=== PATIENT | female | born 1960 | race Caucasian/White ===

== ENCOUNTER 2017-10-15 07:07 | Inpatient (IN) | payer MEDICAID ==
[~2017-10-15] VITALS: Ht 160 cm; Wt 43.5 kg
[2017-10-15] VITALS (8 sets, daily range): BP systolic 111–198; BP diastolic 75–96; PULSE 87–106; RESP 12–20; TEMP 96.9–97.7; O2SAT 94–96
[2017-10-15] MEDS ORDERED: PREG25 PO (07:34)
[2017-10-15] MEDS ORDERED: AMBI10TA PO (07:34)
[2017-10-15 07:36] LABS: AUTOMATED NEUTROPHIL # 8.2 TH/MM3 (1.8-7.7); BASOPHIL % 0.3 % (0.0-2.0); EOSINOPHIL % 0.4 % (0.0-4.0); HEMATOCRIT 45.3 % (35.0-46.0); HEMO FLAGS DIFF FINAL; LYMPH % 9.5 % (9.0-44.0); LYMPHOCYTE # 0.9 TH/MM3 (1.0-4.8); MEAN CELL VOLUME 96.8 FL (80.0-100.0); MEAN CORPUSCULAR HEMOGLOBIN 31.9 PG (27.0-34.0); MEAN CORPUSCULAR HGB CONC 32.9 % (32.0-36.0); MONO % 6.2 % (0.0-8.0); NEUT % 83.6 % (16.0-70.0); PLATELET COUNT 322 TH/MM3 (150-450); RED BLOOD COUNT 4.69 MIL/MM3 (4.00-5.30); RED CELL DISTRIBUTION WIDTH 13.5 % (11.6-17.2); WHITE BLOOD COUNT 9.8 TH/MM3 (4.0-11.0)
--- NOTE | 2017-10-15 07:38 | PD ---
HPI Chief Complaint: Altered Mental Status Time Seen by Provider: 07:16 Travel History International Travel<30 days: No (unknown) Contact w/Intl Traveler<30days: No (unknown) History of Present Illness HPI 57yo F with PMH of COPD, HTN was brought in by EVAC for altered mental status. Apparently, she drove from [facility] and is not from around here. Told EVAC she has not slept for days and out of her ambien. She is acting very bizarre and stares for a while before stating her name. Pt is not answering questions and seems a bit catatonic. No acute signs of trauma except old abrasion in left knee and dirt in feet. Apparently, EVAC spoke to a friend on the phone and said she was acting normal last time they spoke at 3pm yesterday. PFSH Past Medical History ?: Unknown Social History Tobacco Use: No Allergies-Medications (Allergen,Severity, Reaction): Coded Allergies: No Known Allergies (Unverified , 10/15/17) Reported Meds & Prescriptions Reported Meds & Active Scripts Active Reported Ventolin Hfa 18 GM Inh (Albuterol Sulfate) 90 Mcg/Act Aer 2 Puff INH Q4-6H PRN Vicodin (Hydrocodone-Acetaminophen) 5-300 Mg Tab 1 Tab PO Q6H PRN Lyrica (Pregabalin) 25 Mg Cap 25 Mg PO DAILY Ambien (Zolpidem Tartrate) 10 Mg Tab 10 Mg PO HS PRN Review of Systems Except as stated in HPI: all other systems reviewed are Neg Physical Exam Narrative GENERAL: 57yo F not in distress. SKIN: Focused skin assessment warm/dry. HEAD: Atraumatic. Normocephalic. EYES: Pupils equal and round at 5mm bilaterally. ENT: No nasal bleeding or discharge. Mucous membranes pink and moist. NECK: Trachea midline. No JVD. CARDIOVASCULAR: Regular rate and rhythm. No murmur appreciated. RESPIRATORY: No accessory muscle use. Clear to auscultation. Breath sounds equal bilaterally. GASTROINTESTINAL: Abdomen soft, non-tender, nondistended. MUSCULOSKELETAL: No obvious deformities. No clubbing. No cyanosis. No edema. NEUROLOGICAL: Awake and oriented to person only. Muscle strength 5/5 in all extremities. Sensation intact. Data Data Last Documented VS Vital Signs Date Time Temp Pulse Resp B/P (MAP) Pulse Ox O2 Delivery O2 Flow Rate FiO2 12/1/17 09:41 99 96 Room Air 10/15/17 09:41 18 157/88 (111) 10/15/17 07:16 97.7 Orders Orders Electrocardiogram (10/15/17 07:16) Ammonia (10/15/17 07:16) Complete Blood Count With Diff (10/15/17 07:16) Comprehensive Metabolic Panel (10/15/17 07:16) Creatine Kinase (Cpk) (10/15/17 07:16) Prothrombin Time / Inr (Pt) (10/15/17 07:16) Act Partial Throm Time (Ptt) (10/15/17 07:16) Troponin I (10/15/17 07:16) Thyroid Stimulating Hormone (10/15/17 07:16) Urinalysis - C+S If Indicated (10/15/17 07:16) Lactic Acid Sepsis Protocol (10/15/17 07:16) Chest, Single Ap (10/15/17 07:16) Ct Brain W/O Iv Contrast(Rout) (10/15/17 07:16) Drug Screen, Random Urine (10/15/17 07:16) Alcohol (Ethanol) (10/15/17 07:16) Ketorolac Inj (Toradol Inj) (10/15/17 08:45) CKMB (10/15/17 07:19) CKMB% (10/15/17 07:19) Sodium Chlor 0.9% 1000 Ml Inj (Ns 1000 M (10/15/17 09:45) Thyroxine (T4) (10/15/17 09:32) Knee, Ltd (1 Or 2vws) (10/15/17 ) Knee, Ltd (1 Or 2vws) (10/15/17 ) Admit To Inpatient (10/15/17 ) Vital Signs (Adult) Q4H (10/15/17 10:05) Activity Bed Rest (10/15/17 10:05) Diet Regular Basic (10/15/17 Lunch) Sodium Chlor 0.9% 1000 Ml Inj (Ns 1000 M (10/15/17 10:05) Sodium Chloride 0.9% Flush (Ns Flush) (10/15/17 10:15) Sodium Chloride 0.9% Flush (Ns Flush) (10/15/17 21:00) Acetaminophen (Tylenol) (10/15/17 10:15) Basic Metabolic Panel (Bmp) (10/16/17 06:00) Complete Blood Count With Diff (10/16/17 06:00) Resp Oxygen Ronak C Titrat 1-4 L (10/15/17 ) Heparin Inj (Heparin Inj) (10/15/17 14:00) Naloxone Inj (Narcan Inj) (10/15/17 10:15) Admit Order (Ed Use Only) (10/15/17 10:06) Labs Laboratory Tests Test 10/15/17 07:19 10/15/17 07:57 10/15/17 08:35 White Blood Count 9.8 TH/MM3 Red Blood Count 4.69 MIL/MM3 Hemoglobin 14.9 GM/DL Hematocrit 45.3 % Mean Corpuscular Volume 96.8 FL Mean Corpuscular Hemoglobin 31.9 PG Mean Corpuscular Hemoglobin Concent 32.9 % Red Cell Distribution Width 13.5 % Platelet Count 322 TH/MM3 Mean Platelet Volume 7.4 FL Neutrophils (%) (Auto) 83.6 % Lymphocytes (%) (Auto) 9.5 % Monocytes (%) (Auto) 6.2 % Eosinophils (%) (Auto) 0.4 % Basophils (%) (Auto) 0.3 % Neutrophils # (Auto) 8.2 TH/MM3 Lymphocytes # (Auto) 0.9 TH/MM3 Monocytes # (Auto) 0.6 TH/MM3 Eosinophils # (Auto) 0.0 TH/MM3 Basophils # (Auto) 0.0 TH/MM3 CBC Comment DIFF FINAL Differential Comment Prothrombin Time 9.9 SEC Prothromb Time International Ratio 0.9 RATIO Activated Partial Thromboplast Time 25.5 SEC Blood Urea Nitrogen 7 MG/DL Creatinine 0.50 MG/DL Random Glucose 86 MG/DL Total Protein 7.2 GM/DL Albumin 3.8 GM/DL Calcium Level 8.7 MG/DL Alkaline Phosphatase 59 U/L Aspartate Amino Transf (AST/SGOT) 28 U/L Alanine Aminotransferase (ALT/SGPT) 24 U/L Total Bilirubin 0.6 MG/DL Sodium Level 124 MEQ/L Potassium Level 4.0 MEQ/L Chloride Level 91 MEQ/L Carbon Dioxide Level 24.0 MEQ/L Anion Gap 9 MEQ/L Estimat Glomerular Filtration Rate 128 ML/MIN Ammonia 16 MCMOL/L Total Creatine Kinase 505 U/L Creatine Kinase MB 8.0 NG/ML Creatine Kinase MB % 1.6 % Troponin I LESS THAN 0.02 NG/ML Thyroxine (T4) 8.4 MCG/DL Thyroid Stimulating Hormone 3rd Gen 0.115 uIU/ML Ethyl Alcohol Level LESS THAN 3 MG/DL Urine Collection Type CATH Urine Color YELLOW Urine Turbidity CLEAR Urine pH 6.0 Urine Specific [place] 1.011 Urine Protein 30 mg/dL Urine Glucose (UA) NEG mg/dL Urine Ketones 15 mg/dL Urine Occult Blood TRACE Urine Nitrite NEG Urine Bilirubin NEG Urine Leukocyte Esterase NEG Urine RBC 0-3 /hpf Urine WBC 0-2 /hpf Urine Squamous Epithelial Cells 0-5 /hpf Microscopic Urinalysis Comment CATH-CULT NOT IND Urine Collection Time 07:57 Urine Opiates Screen NEG Urine Barbiturates Screen NEG Urine Amphetamines Screen NEG Urine Benzodiazepines Screen NEG Urine Cocaine Screen NEG Urine Cannabinoids Screen NEG Lactic Acid Level 0.7 mmol/L MDM Medical Decision Making Medical Screen Exam Complete: Yes Emergency Medical Condition: Yes Interpretation(s) EKG: Sinus tachycardia at 101bpm. Normal axis. No ST segment elevation or depression. Differential Diagnosis Psychosis vs. delirium vs. dementia vs. ICH Narrative Course 57yo F with altered mental status. Labs reviewed, no leukocytosis. Hyponatremia at 124. Lactic acid 0.7. Ammonia normal. CPK mildly elevated at 505. Troponin negative. TSH low at 0.115. T4 ordered. Alcohol negative. Utox negative. UA negative. CXR negative. CT brain negative. Pt reevaluated at bedside and is now talking more and complaining of bilateral knee pain. Said she fell yesterday. Xray bilateral knees negative for fracture. Pt given NS IVF and toradol for pain. Discussed with Dr. Van and accepted to her service. Diagnosis Primary Impression: Altered mental status Qualified Codes: R41.82 - Altered mental status, unspecified Additional Impression: Hyponatremia Admitting Information Admitting Physician Requests: Admit Scripts Clonidine (Clonidine) 0.1 Mg Tab 0.1 MG PO Q6HR for Blood Pressure Management, #60 TAB 0 Refills Prov: Tatiana Van MD 10/16/17 Kenyatta Bush DO Oct 15, 2017 07:38
[2017-10-15] MEDS ORDERED: VENTAER INH (07:41)
[2017-10-15] MEDS ORDERED: HYDR-3111 PO (07:41)
--- NOTE | 2017-10-15 07:44 | RADRPT ---
EXAM DATE/TIME: 10/15/2017 07:27 [facility] COMPARISON: No previous studies available for comparison. INDICATIONS : Altered mental status. RADIATION DOSE: 59.98 CTDIvol (mGy) MEDICAL HISTORY : Chronic obstructive pulmonary disease. Hypertension. SURGICAL HISTORY : None. ENCOUNTER: Initial ACUITY: 1 day PAIN SCALE: 0/10 LOCATION: cranial TECHNIQUE: Multiple contiguous axial images were obtained of the head. Using automated exposure control and adj ustment of the mA and/or kV according to patient size, radiation dose was kept as low as reasonably a chievable to obtain optimal diagnostic quality images. DICOM format image data is available electro nically for review and comparison. FINDINGS: CEREBRUM: The ventricles are normal for age. No evidence of midline shift, mass lesion, hemorrhage or acute in farction. No extra-axial fluid collections are seen. POSTERIOR FOSSA: The cerebellum and brainstem are intact. The 4th ventricle is midline. The cerebellopontine angle i s unremarkable. EXTRACRANIAL: The visualized portion of the orbits is intact. SKULL: The calvaria is intact. No evidence of skull fracture. CONCLUSION: No acute disease. Jamison Tavares Jr., MD on October 15, 2017 at 7:38 Board Certified Radiologist. This report was verified electronically.
--- NOTE | 2017-10-15 07:45 | RADRPT ---
EXAM DATE/TIME: 10/15/2017 07:34 [facility] COMPARISON: No previous studies available for comparison. INDICATIONS : Short of breath. MEDICAL HISTORY : Chronic obstructive pulmonary disease. SURGICAL HISTORY : None. ENCOUNTER: Initial ACUITY: 1 day PAIN SCORE: 0/10 LOCATION: Bilateral chest FINDINGS: A single view of the chest demonstrates the lungs to be symmetrically aerated without evidence of mas s, infiltrate or effusion. Lungs are hyperinflated bilaterally. Linear parenchymal density within the medial left upper lobe consistent with scarring. A calcified granulomas seen within the lateral righ t base. The cardiomediastinal contours are unremarkable. Osseous structures are intact. CONCLUSION: Hyperinflation suggesting COPD. No infiltrates or effusions. Linear scarring within the medial left u pper lobe. Jamison Tavares Jr., MD on October 15, 2017 at 7:42 Board Certified Radiologist. This report was verified electronically.
[2017-10-15 07:51] LABS: APTT (PATIENT) 25.5 SEC (24.3-30.1); INTERNATIONAL NORMALIZED RATIO 0.9 RATIO; PROTHROMBIN TIME - PATIENT 9.9 SEC (9.8-11.6)
[2017-10-15 08:04] LABS: GLUCOSE,URINE NEG (NEG); KETONE, URINE 15 mg/dL (NEG); NITRITE,URINE NEG (NEG)
[2017-10-15 08:08] LABS: BLOOD, URINE TRACE (NEG)
[2017-10-15 08:10] LABS: METHOD OF COLLECTION CATH
[2017-10-15 08:11] LABS: COMMENT (UR) CATH-CULT NOT IND; CULTURE IF INDICATED CATH CULTURE NOT IND; RBC, URINE 0-3 /hpf (0-3); SQUAMOUS EPITHELIAL CELL URINE 0-5 /hpf (0-5); URINE COLOR YELLOW (YELLW/STRAW); WBC, URINE 0-2 /hpf (0-5)
[2017-10-15] MEDS ORDERED: KETOROLAC TROMETHAMINE 30 MG/ML (IVP) VIAL IV PUSH ONE (08:45)
[2017-10-15 09:20] LABS: ALCOHOL LESS THAN 3 MG/DL (0-5); ALKALINE PHOSPHATASE 59 U/L (45-117); ALT (GPT) 24 U/L (10-53); ANION GAP 9 MEQ/L (5-15); AST (GOT) 28 U/L (15-37); BLOOD UREA NITROGEN 7 MG/DL (7-18); CHLORIDE 91 MEQ/L (98-107); CREATINE KINASE 505 U/L (26-192); GLOMERULAR FILTRATION RATE 128 ML/MIN (>89); TOTAL BILIRUBIN ADULT 0.6 MG/DL (0.2-1.0)
[2017-10-15 09:23] LABS: SODIUM (NA) 124 MEQ/L (136-145)
[2017-10-15] MEDS ORDERED: SODIUM CHLOR 0.9% 1000 ML INJ 1,000 ML IV ONE (09:45)
--- NOTE | 2017-10-15 10:13 | RADRPT ---
EXAM DATE/TIME: 10/15/2017 09:57 [facility] COMPARISON: No previous studies available for comparison. INDICATIONS : Fall, left knee pain. MEDICAL HISTORY : None. SURGICAL HISTORY : None. ENCOUNTER: Initial ACUITY: 1 day PAIN SCORE: 8/10 LOCATION: Left knee FINDINGS: Two view examination of the left knee demonstrates no evidence of fracture or dislocation. Bony mine ralization is normal. The suprapatellar soft tissues have a normal configuration. CONCLUSION: Negative for fracture or dislocation. Follow up in 7-10 days is suggested if symptoms persist. Darell Miguel MD FACR on October 15, 2017 at 10:10 Board Certified Radiologist. This report was verified electronically.
--- NOTE | 2017-10-15 10:14 | RADRPT ---
EXAM DATE/TIME: 10/15/2017 09:57 [facility] COMPARISON: No previous studies available for comparison. INDICATIONS : Fall, right knee pain. MEDICAL HISTORY : None. SURGICAL HISTORY : None. ENCOUNTER: Initial ACUITY: 1 day PAIN SCORE: 8/10 LOCATION: Right knee FINDINGS: Two view examination of the right knee demonstrates no evidence of fracture or dislocation. Bony min eralization is normal. Minimal induration suprapatellar tissues.. CONCLUSION: Minimal induration suprapatellar soft tissues, negative for fracture Darell Miguel MD FACR on October 15, 2017 at 10:11 Board Certified Radiologist. This report was verified electronically.
[2017-10-15] MEDS ORDERED: NALOXONE HCL 0.4 MG/ML AMP IV PUSH PRN (10:15)
[2017-10-15] MEDS ORDERED: SODIUM CHLORIDE 0.9% FLUSH 10 ML FLUSH IV FLUSH PRN (10:15)
[2017-10-15] MEDS ORDERED: ACETAMINOPHEN 325 MG TAB PO PRN (10:15)
[2017-10-15] MEDS: SODIUM CHLOR 0.9% 1000 ML INJ 1,000 ML IV SCH ×2 (10:52→21:00)
[2017-10-15] MEDS: HEPARIN SODIUM - SQ 10,000 UNITS/ML VIAL SQ SCH ×2 (16:07→22:42)
--- NOTE | 2017-10-15 16:08 | EKG ---
Date Performed: 10/15/2017 Time Performed: 07:25:54 PTAGE: 57 years EKG: SINUS TACHYCARDIA POSSIBLE RIGHT ATRIAL ENLARGEMENT ABNORMAL RHYTHM ECG NO PREVIOUS TRACING DOCTOR: Lorena Das Interpretating Date/Time 10/15/2017 16:07:25
--- NOTE | 2017-10-15 17:00 | HHI.HP ---
[facility] Service [facility] Primary Care Physician No Primary Care Physician Admission Diagnosis Altered mental status, hyponatremia Diagnoses: Chief Complaint: Hyponatremia Travel History International Travel<30 Days: No Contact w/Intl Traveler <30 Da: No Traveled to Known Affected Are: No History of Present Illness Patient is a 57-year-old female who came to the emergency room acting bizarre. She is staring and not answering questions in the emergency room. Were no signs of trauma. Apparently she has a history of COPD and hypertension but this is not clear. She does possess medications including Ventolin, Vicodin, Lyrica and Ambien. The emergency room reported that she ran out of her Ambien area she is not cooperating due to this altered mental state. She has been staring at the nursing team and other patients. When asked her name or twice in the hospital she has a blank stare. When asked if she is in pain she says "yes my knees hurt". She does have a sodium level of 124 and has been admitted to the medical team for further evaluation. She appears to have some mild rhabdomyolysis. She's been started on IV fluids and admitted to the medical team for further evaluation Review of Systems ROS Limitations: Psychotic Past Family Social History Past Medical History Unknown Past Surgical History Unknown Reported Medications Reviewed in the EMR Allergies: Coded Allergies: No Known Allergies (Unverified , 10/15/17) Active Ordered Medications reviewed in the EMR Family History Unknown Social History Unknown Physical Exam Vital Signs Vital Signs Date Time Temp Pulse Resp B/P (MAP) Pulse Ox O2 Delivery O2 Flow Rate FiO2 10/15/17 12:00 96.9 102 12 140/75 (96) 94 10/15/17 11:29 10/15/17 10:54 106 18 167/96 (119) 96 Room Air 10/15/17 09:41 99 96 Room Air 10/15/17 09:41 99 18 157/88 (111) 95 Room Air 10/15/17 08:48 104 18 111/87 (95) 96 Room Air 10/15/17 07:59 Room Air 10/15/17 07:16 97.7 101 17 193/94 (127) 95 Physical Exam GENERAL: This is a frail female is somnolent SKIN: No rashes, ecchymoses or lesions. Cool and dry. HEAD: Atraumatic. Normocephalic. No temporal or scalp tenderness. EYES: Pupils equal round and reactive. Extraocular motions intact. No scleral icterus. No injection or drainage. ENT: Nose without bleeding, purulent drainage or septal hematoma. Throat without erythema, tonsillar hypertrophy or exudate. Uvula midline. Airway patent. NECK: Trachea midline. No JVD or lymphadenopathy. Supple, nontender, no meningeal signs. CARDIOVASCULAR: Regular rate and rhythm without murmurs, gallops, or rubs. RESPIRATORY: Clear to auscultation. Breath sounds equal bilaterally. No wheezes , rales, or rhonchi. GASTROINTESTINAL: Abdomen soft, non-tender, nondistended. No hepato-splenomegaly , or palpable masses. No guarding. MUSCULOSKELETAL: Extremities without clubbing, cyanosis, or edema. No joint tenderness, effusion, or edema noted. No calf tenderness. Negative Homans sign bilaterally. NEUROLOGICAL: Awake and alert. Cranial nerves II through XII intact. Motor and sensory grossly within normal limits. Five out of 5 muscle strength in all muscle groups. Normal speech. Laboratory Laboratory Tests Test 10/15/17 07:19 10/15/17 07:57 10/15/17 08:35 White Blood Count 9.8 Red Blood Count 4.69 Hemoglobin 14.9 Hematocrit 45.3 Mean Corpuscular Volume 96.8 Mean Corpuscular Hemoglobin 31.9 Mean Corpuscular Hemoglobin Concent 32.9 Red Cell Distribution Width 13.5 Platelet Count 322 Mean Platelet Volume 7.4 Neutrophils (%) (Auto) 83.6 Lymphocytes (%) (Auto) 9.5 Monocytes (%) (Auto) 6.2 Eosinophils (%) (Auto) 0.4 Basophils (%) (Auto) 0.3 Neutrophils # (Auto) 8.2 Lymphocytes # (Auto) 0.9 Monocytes # (Auto) 0.6 Eosinophils # (Auto) 0.0 Basophils # (Auto) 0.0 CBC Comment DIFF FINAL Differential Comment Prothrombin Time 9.9 Prothromb Time International Ratio 0.9 Activated Partial Thromboplast Time 25.5 Blood Urea Nitrogen 7 Creatinine 0.50 Random Glucose 86 Total Protein 7.2 Albumin 3.8 Calcium Level 8.7 Alkaline Phosphatase 59 Aspartate Amino Transf (AST/SGOT) 28 Alanine Aminotransferase (ALT/SGPT) 24 Total Bilirubin 0.6 Sodium Level 124 Potassium Level 4.0 Chloride Level 91 Carbon Dioxide Level 24.0 Anion Gap 9 Estimat Glomerular Filtration Rate 128 Ammonia 16 Total Creatine Kinase 505 Creatine Kinase MB 8.0 Creatine Kinase MB % 1.6 Troponin I LESS THAN 0.02 Thyroxine (T4) 8.4 Thyroid Stimulating Hormone 3rd Gen 0.115 Ethyl Alcohol Level LESS THAN 3 Urine Collection Type CATH Urine Color YELLOW Urine Turbidity CLEAR Urine pH 6.0 Urine Specific [place] 1.011 Urine Protein 30 Urine Glucose (UA) NEG Urine Ketones 15 Urine Occult Blood TRACE Urine Nitrite NEG Urine Bilirubin NEG Urine Leukocyte Esterase NEG Urine RBC 0-3 Urine WBC 0-2 Urine Squamous Epithelial Cells 0-5 Microscopic Urinalysis Comment CATH-CULT NOT IND Urine Collection Time 07:57 Urine Opiates Screen NEG Urine Barbiturates Screen NEG Urine Amphetamines Screen NEG Urine Benzodiazepines Screen NEG Urine Cocaine Screen NEG Urine Cannabinoids Screen NEG Lactic Acid Level 0.7 Result Diagram: 10/15/1771810/15/17718 Imaging Last Impressions Head CT 10/15/1716 Signed Impressions: Service Date/Time: Sunday, October 15, 2017 07:27 - CONCLUSION: No acute disease. Jamison Tavares Jr., MD Chest X-Ray 10/15/1716 Signed Impressions: Service Date/Time: Sunday, October 15, 2017 07:34 - CONCLUSION: Hyperinflation suggesting COPD. No infiltrates or effusions. Linear scarring within the medial left upper lobe. Jamison Tavares Jr., MD Knee X-Ray 10/15/17 0000 Signed Impressions: Service Date/Time: Sunday, October 15, 2017 09:57 - CONCLUSION: Minimal induration suprapatellar soft tissues, negative for fracture Darell Miguel MD FACR Caprini VTE Risk Assessment Caprini VTE Risk Assessment: Mod/High Risk (score >= 2) Caprini Risk Assessment Model Point Value = 1 Point Value = 2 Point Value = 3 Point Value = 5 Age 41-60 Minor surgery BMI > 25 kg/m2 Swollen legs Varicose veins or History of unexplained or recurrent spontaneous Oral contraceptives or hormone replacement Sepsis (< 1 month) Serious lung disease, including pneumonia (< 1 month) Abnormal pulmonary function Acute myocardial infarction Congestive heart failure (< 1 month) History of inflammatory bowel disease Medical patient at bed rest Age 61-74 Arthroscopic surgery Major open surgery (> 45 min) Laparoscopic surgery (> 45 min) Malignancy Confined to bed (> 72 hours) Immobilizing plaster cast Central venous access Age >= 75 History of VTE Family history of VTE Factor V Leiden Prothrombin [id number] Lupus anticoagulant Anticardiolipin antibodies Elevated serum homocysteine Heparin-induced thrombocytopenia Other congenital or acquired thrombophilia Stroke (< 1 month) Elective arthroplasty Hip, pelvis, or leg fracture Acute spinal cord injury (< 1 month) Prophylaxis Regimen Total Risk Factor Score Risk Level Prophylaxis Regimen 0-1 Low Early ambulation 2 Moderate Order ONE of the following: *Sequential Compression Device (SCD) *Heparin 5000 units SQ BID 3-4 Higher Order ONE of the following medications: *Heparin 5000 units SQ TID *Enoxaparin/Lovenox 40 mg SQ daily (WT < 150 kg, CrCl > 30 mL/min) *Enoxaparin/Lovenox 30 mg SQ daily (WT < 150 kg, CrCl > 10-29 mL/min) *Enoxaparin/Lovenox 30 mg SQ BID (WT < 150 kg, CrCl > 30 mL/min) AND/OR *Sequential Compression Device (SCD) 5 or more Highest Order ONE of the following medications: *Heparin 5000 units SQ TID (Preferred with Epidurals) *Enoxaparin/Lovenox 40 mg SQ daily (WT < 150 kg, CrCl > 30 mL/min) *Enoxaparin/Lovenox 30 mg SQ daily (WT < 150 kg, CrCl > 10-29 mL/min) *Enoxaparin/Lovenox 30 mg SQ BID (WT < 150 kg, CrCl > 30 mL/min) AND *Sequential Compression Device (SCD) Assessment and Plan Problem List: (1) Altered mental status ICD Code: R41.82 - Altered mental status, unspecified Status: Acute Plan: May be metabolic encephalopathy due to hyponatremia, will follow clinically Continue IV hydration psych consult pending (2) Hyponatremia ICD Code: E87.1 - Hypo-osmolality and hyponatremia Status: Acute Plan: Etiology unclear, will follow, continue IV hydration, repeat chest x-ray in a.m. (3) Rhabdomyolysis ICD Code: M62.82 - Rhabdomyolysis Plan: Mild, continue IV hydration and follow CPK Code Status full code Physician Certification 2 Midnight Certification Type: Admission for Inpatient Services Order for Inpatient Services The services are ordered in accordance with Medicare regulations or non- Medicare payer requirements, as applicable. In the case of services not specified as inpatient-only, they are appropriately provided as inpatient services in accordance with the 2-midnight benchmark. Estimated LOS (days): 3 3 days is the estimated time the patient will need to remain in the hospital, assuming treatment plan goals are met and no additional complications. Post-Hospital Plan: Home Problem Qualifiers (1) Altered mental status: Qualified Codes: R41.82 - Altered mental status, unspecified Tatiana Van MD Oct 15, 2017 17:00
[2017-10-15 19:03] LABS: BICARBONATE 25.7 MEQ/L (21.0-32.0); POTASSIUM 3.6 MEQ/L (3.5-5.1)
[2017-10-15] MEDS: SODIUM CHLORIDE 0.9% FLUSH 10 ML FLUSH IV FLUSH SCH (21:00)
[2017-10-16] VITALS: BP 153/100; PULSE 86; RESP 20; TEMP 97.6; O2SAT 97
[2017-10-16] MEDS: SODIUM CHLOR 0.9% 1000 ML INJ 1,000 ML IV SCH (06:52)
[2017-10-16] MEDS: HEPARIN SODIUM - SQ 10,000 UNITS/ML VIAL SQ SCH ×2 (06:52→14:00)
[2017-10-16 08:00] VITALS: BP 173/91; PULSE 83; RESP 20; TEMP 97.4; O2SAT 96
[2017-10-16 08:09] LABS: AUTOMATED NEUTROPHIL # 5.3 TH/MM3 (1.8-7.7); BASOPHIL % 0.3 % (0.0-2.0); EOSINOPHIL # 0.1 TH/MM3 (0-0.4); EOSINOPHIL % 0.7 % (0.0-4.0); HEMATOCRIT 42.5 % (35.0-46.0); HEMO FLAGS DIFF FINAL; LYMPH % 16.3 % (9.0-44.0); LYMPHOCYTE # 1.2 TH/MM3 (1.0-4.8); MEAN CELL VOLUME 97.4 FL (80.0-100.0); MEAN CORPUSCULAR HEMOGLOBIN 31.8 PG (27.0-34.0); MEAN CORPUSCULAR HGB CONC 32.6 % (32.0-36.0); MONO % 11.7 % (0.0-8.0); PLATELET COUNT 306 TH/MM3 (150-450); RED BLOOD COUNT 4.37 MIL/MM3 (4.00-5.30); RED CELL DISTRIBUTION WIDTH 13.3 % (11.6-17.2); WHITE BLOOD COUNT 7.5 TH/MM3 (4.0-11.0)
[2017-10-16 08:29] LABS: BICARBONATE 26.4 MEQ/L (21.0-32.0)
[2017-10-16 08:32] LABS: POTASSIUM 2.7 MEQ/L (3.5-5.1)
[2017-10-16] MEDS: SODIUM CHLORIDE 0.9% FLUSH 10 ML FLUSH IV FLUSH SCH (09:00)
[2017-10-16] MEDS ORDERED: POTASSIUM CHLORIDE 25 MEQ EFFERVESCENT TAB PO ONE (09:30)
[2017-10-16] MEDS ORDERED: POTASSIUM CHLORIDE 10 MEQ CONTROLLED RELEASE TAB PO ONE (10:00)
[2017-10-16 12:00] VITALS: BP 159/79; PULSE 95; RESP 20; TEMP 98.5; O2SAT 94
[2017-10-16 15:55] VITALS: BP 182/100; PULSE 103; RESP 20; TEMP 97.8; O2SAT 93
[2017-10-16] MEDS ORDERED: RESP: ALBUTEROL 2.5 MG/IPRATROPIUM 0.5 MG NEB (PRN) NEB (16:15)
--- NOTE | 2017-10-16 16:15 | HHI.PR ---
Subjective Remarks patient seen i follow up for ams The patient more alert today is aware that she is not making good since her admission She has been writing letters as if she is writing lists but it is nonsensical She is agreeable for further evaluation by psychiatry admitting that she has anxiety, depression and a history of bipolar disorder she appears to have disorganized thought and Objective Vitals Vital Signs Date Time Temp Pulse Resp B/P (MAP) Pulse Ox O2 Delivery O2 Flow Rate FiO2 10/16/17 15:55 97.8 103 20 182/100 (127) 93 10/16/17 12:00 98.5 95 20 159/79 (105) 94 10/16/17 08:00 97.4 83 20 173/91 (118) 96 10/16/17 00:00 97.6 86 20 153/100 (117) 97 10/15/17 20:45 94 21 10/15/17 20:00 97.5 87 20 169/88 (115) 94 I/O 10/15/17 10/15/17 10/15/17 10/16/17 10/16/17 10/16/17 07:00 15:00 23:00 07:00 15:00 23:00 Intake Total 1060 ml 1140 ml 1224 ml 1200 ml Balance 1060 ml 1140 ml 1224 ml 1200 ml Intake Oral 240 ml 240 ml 1200 ml IV Total 1060 ml 900 ml 984 ml # Voids 1 3 5 3 1 # Bowel Movements 0 1 1 1 Result Diagram: 10/16/17 0633 10/16/17 0633 Objective Remarks GENERAL: This is a well-nourished, well-developed patient, in no apparent distress. CARDIOVASCULAR: Regular rate and rhythm without murmurs, gallops, or rubs. RESPIRATORY: Clear to auscultation. Breath sounds equal bilaterally. No wheezes , rales, or rhonchi. GASTROINTESTINAL: Abdomen soft, non-tender, nondistended. Normal active bowel sounds MUSCULOSKELETAL: Extremities without clubbing, cyanosis, or edema. NEURO: Alert & Oriented x4 to person, place, time, situation. Moves all ext x4 but is confused and has disorganized thought with frequent ramblings that require constant redirection A/P Problem List: (1) Altered mental status ICD Code: R41.82 - Altered mental status, unspecified Status: Acute Plan: Hyponatremia is resolved although patient still has some inappropriate psychological behaviors which will require further psychiatric evaluation. Patient is agreeable to this admitting that she has bipolar disorder and has not been taking medications. Further she has been found to have a medication that has apparently been identified as Nucynta in her purse in a plastic bag She is not agitated and does not pose a threat to herself or to others at this point. She will voluntarily follow in the psych facility (2) Hyponatremia ICD Code: E87.1 - Hypo-osmolality and hyponatremia Status: Acute Plan: Likely dehydrated, follow-up is needed Repeat chest x-ray significant only for COPD (3) Rhabdomyolysis ICD Code: M62.82 - Rhabdomyolysis Plan: Resolved (4) COPD (chronic obstructive pulmonary disease) ICD Code: J44.9 - Chronic obstructive pulmonary disease, unspecified Plan: Stable and without acute exacerbation, DuoNeb as needed (5) Hypokalemia ICD Code: E87.6 - Hypokalemia Plan: Replace Discharge Planning Case discussed with psychiatrist money market clerk. Recommend further evaluation psychiatric unit. Patient is agreeable for voluntary admission and medically acceptable for discharge Problem Qualifiers (1) Altered mental status: Qualified Codes: R41.82 - Altered mental status, unspecified Tatiana Van MD Oct 16, 2017 16:15
[2017-10-16] MEDS ORDERED: CLON0.1T PO (17:03)
--- NOTE | 2017-10-16 17:04 | HHI.DCPOC ---
Discharge Care Plan Diagnosis: (1) Hyponatremia (2) Altered mental status Goals to Promote Your Health * To prevent worsening of your condition and complications * To maintain your health at the optimal level Directions to Meet Your Goals Take your medications as prescribed Follow your dietary instruction Follow activity as directed Keep your appointments as scheduled Take your immunizations and boosters as scheduled If your symptoms worsen call your PCP, if no PCP go to Urgent Care Center or Emergency Room Smoking is Dangerous to Your Health. Avoid second hand smoke Call the 24-hour hour crisis hotline for domestic abuse at Tatiana Van MD Oct 16, 2017 17:04
[2017-10-16] MEDS ORDERED: cloNIDine HCL 0.1 MG TAB PO PRN (17:15)
--- NOTE | 2017-10-17 07:51 | MG ---
cc: OMAR RHODES MD Sex: F DATE OF STUDY: 10/16/2017 DATE OF : 1960 HISTORY: 57-year-old, mental status changes. DESCRIPTION: Beta delta frequencies in the posterior rhythm, followed by bursts of 2 to 3 Hz delta. Increased beta frequencies, decreased myogenic artifact bilateral frontotemporal region. Posterior rhythm did increment up to 7-8 Hz. Appearance of stage II-III sleep. Sharp transients nonspecific, good EEG variability reactivity. Some driving with photic stimulation. Single lead EKG showing sinus rhythm. INTERPRETATION Mostly sleep state, possible mild underlying minimal encephalopathy. Increased fast frequencies which may be related to psychotropic medication effect. Clinical correlation. Omar Rhodes MD MG/AMILCAR /11:54 PM /7:42 AM
[2017-10-17 17:48] LABS: MAGNESIUM 1.5 MG/DL (1.5-2.5); POTASSIUM 3.2 MEQ/L (3.5-5.1)
== END 2017-10-16 19:25 | DRG 558 ==
LOC: PHED 07:07 → PHEDA 10:06 → PH3A 11:41
PROVIDERS: ADMIT Hospitalist; ATTEND Hospitalist
DX: M62.82 Rhabdomyolysis (principal); E87.1 Hypo-osmolality and hyponatremia; I10 Essential (primary) hypertension; E86.0 Dehydration; E87.6 Hypokalemia; J44.9 Chronic obstructive pulmonary disease, unspecified; S80.212A Abrasion, left knee, initial encounter; F29 Unspecified psychosis not due to a substance or known physiological condition; F41.9 Anxiety disorder, unspecified; F31.9 Bipolar disorder, unspecified; W19.XXXA Unspecified fall, initial encounter
CPT/HCPCS: 70450; 71010; 73560; 80048; 80053; 80307; 81001; 82140; 82550; 82552; 83605; 83735; 84436; 84443; 84484; 85025; 85610; 85730; 93005; 95819; 96374; J1644; J1885; J7030

== ENCOUNTER 2017-10-16 17:30 | Inpatient (IN) | payer MEDICAID ==
[~2017-10-16] VITALS: Ht 160 cm; Wt 45.5 kg
[~2017-10-16 17:30] MED LIST: AMBI10TA PO; CLON0.1T PO; HYDR-3111 PO; PREG25 PO; VENTAER INH
[2017-10-16 20:25] VITALS: BP 175/91; PULSE 114; RESP 20; TEMP 98.3; O2SAT 94
[2017-10-16 20:32] VITALS: BP 175/91; PULSE 114; RESP 20; TEMP 98.3; O2SAT 94
[2017-10-16] MEDS ORDERED: MAGNESIUM HYDROXIDE SUSP 30 ML CUP PO PRN (21:45)
[2017-10-16] MEDS ORDERED: ALUMINUM/MAGNESIUM/SIMETH 30 ML CUP PO PRN (21:45)
[2017-10-16] MEDS ORDERED: traZODone HCL 50 MG TAB PO PRN (21:45)
[2017-10-16] MEDS ORDERED: LORazepam 2 MG/ML VIAL IM PRN (21:45)
[2017-10-16] MEDS ORDERED: diphenhydrAMINE HCL 50 MG CAP - HS PRN PO (21:45)
[2017-10-16] MEDS ORDERED: ACETAMINOPHEN 325 MG TAB PO PRN (21:45)
[2017-10-16] MEDS ORDERED: diphenhydrAMINE HCL 50 MG/ML VIAL - HS PRN IM (21:45)
[2017-10-16] MEDS ORDERED: hydrOXYzine HCL 50 MG TAB PO PRN (21:45)
[2017-10-16] MEDS: LORazepam 1 MG TAB PO PRN (22:14)
[2017-10-17 06:03] VITALS: BP 170/102; PULSE 99; RESP 17; TEMP 98.3; O2SAT 96
[2017-10-17] MEDS: LORazepam 1 MG TAB PO PRN (06:08)
[2017-10-17] MEDS: NICOTINE 21 MG/24 HR PATCH T-DERMAL SCH (09:00)
[2017-10-17 13:13] LABS: HDL CHOLESTEROL 88.8 MG/DL (40.0-60.0)
[2017-10-17 13:24] LABS: ANION GAP 9 MEQ/L (5-15); BICARBONATE 28.4 MEQ/L (21.0-32.0); BLOOD UREA NITROGEN 5 MG/DL (7-18); CHLORIDE 92 MEQ/L (98-107); GLOMERULAR FILTRATION RATE 74 ML/MIN (>89); LDL CHOLESTEROL 59 MG/DL (0-99); POTASSIUM 3.4 MEQ/L (3.5-5.1); SODIUM (NA) 129 MEQ/L (136-145)
--- NOTE | 2017-10-17 13:36 | PD.CONS ---
HPI Service [facility] Consult Requested By Dr. Ndiaye Reason for Consult Medical management Primary Care Physician No Primary Care Physician Diagnoses: History of Present Illness This is a 57-year-old female who presented to the inpatient psychiatric unit due to questionable psychiatric issues. She was initially admitted to the medical service due to possible altered mental status. Underlying medical conditions were treated but she continues to be the same in which she presented more with the psychiatric issue. Patient stated that she lives in [facility] and she made a wrong turn and state [place]. She stated that the only medical condition she has is hypertension, COPD, and chronic bilateral knee pain. She is AAO 3. She is able to give me an appropriate history. Discussed with patient's nurse that she had no issues except waiting for labs. All other review of system reviewed and negative. Past Family Social History Allergies: Coded Allergies: No Known Allergies (Unverified , 10/15/17) Past Medical History Hypertension COPD Chronic knee pain Past Surgical History Denies past surgical history Reported Medications Reported Meds & Active Scripts Active Clonidine (Clonidine HCl) 0.1 Mg Tab 0.1 Mg PO Q6HR Reported Ventolin Hfa 18 GM Inh (Albuterol Sulfate) 90 Mcg/Act Aer 2 Puff INH Q4-6H PRN Vicodin (Hydrocodone-Acetaminophen) 5-300 Mg Tab 1 Tab PO Q6H PRN Lyrica (Pregabalin) 25 Mg Cap 25 Mg PO DAILY Ambien (Zolpidem Tartrate) 10 Mg Tab 10 Mg PO HS PRN Active Ordered Medications Current Medications Lorazepam (Ativan) 1 mg Q6H PRN PO MODERATE TO SEVERE ANXIETY Last administered on 10/17/17t 06:08; Start 10/16/17 at 21:45 Lorazepam (Ativan Inj) 1 mg Q6H PRN IM MODERATE TO SEVERE ANXIETY; Start at 21:45 Hydroxyzine HCl (Atarax) 50 mg Q6H PRN PO ANXIETY; Start 10/16/17 at 21:45 Diphenhydramine HCl (Benadryl) 50 mg HS PRN PO INSOMNIA; Start 10/16/17 at 21: 45 Diphenhydramine HCl (Benadryl Inj) 50 mg HS PRN IM INSOMNIA; Start 10/16/17 at 21:45 Trazodone HCl (Desyrel) 50 mg HS PRN PO INSOMNIA; Start 10/16/17 at 21:45 Acetaminophen (Tylenol) 650 mg Q4H PRN PO Pain 1-5 or Temp >101F; Start at 21:45 Magnesium Hydroxide (Milk Of Magnesia Liq) 30 ml DAILY PRN PO CONSTIPATION; Start 10/16/17 at 21:45 Al Hydrox/Mg Hydrox/Simethicone (Mag-Al Plus Susp Liq) 30 ml Q6H PRN PO DYSPEPSIA; Start 10/16/17 at 21:45 Nicotine (Habitrol 21 Mg Patch.24 Hr) 1 patch DAILY T-DERMAL Last administered on 10/17/17t 09:00; Start 10/17/17 at 09:00 Miscellaneous Information 1 HS T-DERMAL ; Start 10/17/17 at 21:00 Albuterol Sulfate (Proair Hfa Inh) 2 puff Q4H PRN INH SHORTNESS OF BREATH; Start 10/17/17 at 13:45; Status UNV Clonidine (Catapres) 0.1 mg Q6HR PO ; Start 10/17/17 at 13:45; Status UNV Acetaminophen/ Hydrocodone Bitart ([place] 5-325 Mg) 1 tab Q6H PRN PO PAIN; Start 10/17/17 at 13:45; Status UNV Pregabalin (Lyrica) 25 mg DAILY PO ; Start 10/18/17 at 09:00; Status UNV Family History Reviewed past family history. Social History Patient stated that she was in [place]. Denies any alcohol or illicit drug use. Physical Exam Vital Signs Vital Signs Date Time Temp Pulse Resp B/P (MAP) Pulse Ox O2 Delivery O2 Flow Rate FiO2 10/17/17 06:03 98.3 99 17 170/102 (124) 96 10/16/17 20:32 98.3 114 20 175/91 (119) 94 10/16/17 20:25 98.3 114 20 175/91 (119) 94 Physical Exam GENERAL: This is a well-nourished, well-developed patient, in no apparent distress. SKIN: Mild bruising on her left lateral portion of the knee. HEAD: Atraumatic. Normocephalic. No temporal or scalp tenderness. EYES: Pupils equal round and reactive. Extraocular motions intact. No scleral icterus. No injection or drainage. ENT: Nose without bleeding, purulent drainage or septal hematoma. Throat without erythema, tonsillar hypertrophy or exudate. Uvula midline. Airway patent. NECK: Trachea midline. No JVD or lymphadenopathy. Supple, nontender, no meningeal signs. CARDIOVASCULAR: Regular rate and rhythm without murmurs, gallops, or rubs. RESPIRATORY: Clear to auscultation. Breath sounds equal bilaterally. No wheezes , rales, or rhonchi. GASTROINTESTINAL: Abdomen soft, non-tender, nondistended. No hepato-splenomegaly , or palpable masses. No guarding. MUSCULOSKELETAL: Extremities without clubbing, cyanosis, or edema. No joint tenderness, effusion, or edema noted of her bilateral knee. Full range of motion. No calf tenderness. Negative Homans sign bilaterally. NEUROLOGICAL: Awake and alert. Cranial nerves II through XII intact. Motor and sensory grossly within normal limits. Five out of 5 muscle strength in all muscle groups. Normal speech. Laboratory Laboratory Tests Test 10/17/17 12:09 Blood Urea Nitrogen 5 Creatinine 0.80 Random Glucose 163 Calcium Level 9.1 Sodium Level 129 Potassium Level 3.4 Chloride Level 92 Carbon Dioxide Level 28.4 Anion Gap 9 Estimat Glomerular Filtration Rate 74 Triglycerides Level 122 Cholesterol Level 172 LDL Cholesterol 59 HDL Cholesterol 88.8 Cholesterol/HDL Ratio 1.93 Result Diagram: 10/17/17 1209 Assessment and Plan Assessment and Plan Altered mental status -most likely a psychiatric component. Metabolic encephalopathy was ruled out. -Patient admitted to the inpatient psych unit. Management per psychiatrist. Hyponatremia, euvolemic -Sodium 129. Unsure if this is a chronic condition. Sodium did improve with IV fluids. Patient stated that she has no history of hyponatremia. -Will start patient on salt tablets. COPD (chronic obstructive pulmonary disease) -Asymptomatic. Will restart home medication. Hypokalemia -Replenish as needed. Discussed Condition With Patient and her nurse Michaela Cooley MD Oct 17, 2017 13:36
[2017-10-17] MEDS: cloNIDine HCL 0.1 MG TAB PO SCH ×2 (13:45→21:16)
[2017-10-17] MEDS ORDERED: cloNIDine HCL 0.1 MG TAB PO SCH (13:45)
[2017-10-17] MEDS: POTASSIUM CHLORIDE 20 MEQ CONTROLLED RELEASE TAB PO SCH ×2 (13:45→21:16)
[2017-10-17] MEDS ORDERED: ALBUTEROL SULFATE 90 MCG/ACT HFA 8 GM INHALER INH PRN (13:45)
--- NOTE | 2017-10-17 14:14 | HHI.HP ---
Provisional Diagnosis Admission Date Oct 16, 2017 at 17:30 [place] I. Brief psychotic disorder Certification of Person's Competence To Provide Express and Informed Consent I have personally examined Meri Jones , a person being served at [facility] on, Oct 17, 2017 14:00. Express and informed consent means consent voluntarily given in writing, by a competent person, after sufficient explanation and disclosure of the subject matter involved to enable the person to make a knowing and willful decision without any element of force, fraud, deceit, duress, or other form of constraint or coercion. This person is 18 years of age or older, is not now known to be incompetent to consent to treatment with a guardian advocate, and does not have a health care surrogate or proxy currently making medical treatment decisions. I have found this person to be one of the following: [x] Competent to provide express and informed consent, as defined above, for voluntary admission to this facility and is competent to provide express and informed consent for treatment. He/she has the consistent capacity to make well reasoned, willful, and knowing decisions concerning his or her medical or mental health treatment. The person fully and consistently understands the purpose of the admission for examination/placement and is fully capable of personally exercising all rights assured under [place] Incompetent to provide express and informed consent to voluntary admission, and this is incompetent to provide express and informed consent to treatment. The person must be transferred to involuntary status and a petition for a guardian advocate filed with the Circuit Court. [] Refusing to provide express and informed consent to voluntary admission but is competent to provide express and informed consent for treatment. The person must be discharged or transferred to involuntary status. Form shall be completed within 24 hours of a person's arrival at the receiving facility and filed in the clinical record of each person: 1. Admitted on a voluntary basis 2. Permitted to provide express and informed consent to his/her own treatment 3. Allowed to transfer from involuntary to voluntary status 4. Prior to permitting a person to consent to his or her own treatment after having been previously found incompetent to consent to treatment. History of Present Illness Capacity: Has Capacity HPI 57-year-old female admitted voluntarily after transfer from Dr. Van in [facility]. Apparently, the patient was admitted to [facility] with altered mental status. She would not necessarily answer questions and stare blankly at the staff, including when she was asked her name. While treated at [facility], the patient's electrolytes and fluids were corrected, although they were not greatly abnormal. Patient was apparently brought there by [facility] as her car broke down in the [facility] area. She was noted to be dirty and disheveled by [facility] but [facility] reportedly spoke with a friend of hers, who said the patient had not been acting strangely the week before. The patient tells this physician she lives in [facility] and has been living there with a friend for several months. She receives Social Security disability but is not certain why. She states she was driving to [place] [facility] but ended up in [facility]. When questioned about this travel experience, the patient does not have an adequate explanation about why she did not stop or ask for directions, etc. Her speech continues to be somewhat disjointed with flight of ideas and loose associations. For example, she reports one of her nephews is a K-9. (I believe she means he is graduating from some law enforcement Academy.) She has a sister in [place] whom she gave permission to call and a sister in [facility] whom she initially gave permission to call and then changed. She stated the sister in [place] is taking care of the boyfriend's mother who is terminally ill and this sister is too busy to call. She then stated the sister in [facility] has a house full of "hospital pharmacy director" and she is too busy. The patient then provided permission to talk to the sister in [place]. Lastly, patient is repeatedly asking for her medications of Klonopin and Ambien and states she has not slept in 7 days. Review of Systems Except as stated in HPI: all other systems reviewed are Neg Past Psych History Psychological trauma history Treated by a psychiatrist in [facility], reportedly for "depression". Patient does not know of any antidepressant medicine she takes. Violence risk - others (6 mos) Moderate to high. Violence risk - self (6 mos) Moderate to high. Substance Abuse History Drugs/Alcohol past 12 months Patient denies drug or alcohol abuse. This physician is concerned she has been abusing her Ambien and Klonopin and has run out. Past Family Social History Coded Allergies: No Known Allergies (Unverified , 10/15/17) Active Scripts Clonidine (Clonidine) 0.1 Mg Tab, 0.1 MG PO Q6HR for Blood Pressure Management, #60 TAB 0 Refills Prov:Tatiana Van MD 10/16/17 Reported Medications Albuterol 18 GM Inh (Ventolin Hfa 18 GM Inh) 90 Mcg/Act Aer, 2 PUFF INH Q4-6H Y for SHORTNESS OF BREATH, #1 INHALER 0 Refills 10/15/17 Hydrocodone-Acetaminophen (Vicodin) 5-300 Mg Tab, 1 TAB PO Q6H Y for PAIN, TAB 0 Refills 10/15/17 Pregabalin (Lyrica) 25 Mg Cap, 25 MG PO DAILY, #30 CAP 0 Refills 10/15/17 Zolpidem (Ambien) 10 Mg Tab, 10 MG PO HS Y for INSOMNIA, TAB 0 Refills 10/15/17 Current Medications Medications (Trade) Dose Ordered Sig/Lay Route Start Time Stop Time Status Last Admin (Ativan) 1 mg Q6H PRN PO 10/16/17 21:45 10/17/17 06:08 (Ativan Inj) 1 mg Q6H PRN IM 10/16/17 21:45 (Atarax) 50 mg Q6H PRN PO 10/16/17 21:45 (Benadryl) 50 mg HS PRN PO 10/16/17 21:45 (Benadryl Inj) 50 mg HS PRN IM 10/16/17 21:45 (Desyrel) 50 mg HS PRN PO 10/16/17 21:45 (Tylenol) 650 mg Q4H PRN PO 10/16/17 21:45 (Milk Of Magnesia Liq) 30 ml DAILY PRN PO 10/16/17 21:45 (Mag-Al Plus Susp Liq) 30 ml Q6H PRN PO 10/16/17 21:45 (Habitrol 21 Mg Patch.24 Hr) 1 patch DAILY T-DERMAL 10/17/17 09:00 10/17/17 09:00 Miscellaneous Information 1 HS T-DERMAL 10/17/17 21:00 (Proair Hfa Inh) 2 puff Q4H PRN INH 10/17/17 13:45 ([place] 5-325 Mg) 1 tab Q6H PRN PO 10/17/17 13:45 (Lyrica) 25 mg DAILY PO 10/18/17 09:00 (Catapres) 0.1 mg Q12HR PO 10/17/17 13:45 (KCl) 20 meq Q12HR PO 10/17/17 13:45 (Sodium Chloride) 1 gm DAILY PO 10/18/17 09:00 Family Psych History Reported positive for depression. Social History Patient unemployed. Does receive Social Security disability. Has several physical medical problems. Has 2 sisters with whom she is in some contact. Patient's Strengths (min. 2) Verbal and has access to healthcare. Physical Exam GENERAL: SKIN: Warm and dry. HEAD: Normocephalic. EYES: No scleral icterus. No injection or drainage. NECK: Supple, trachea midline. No JVD or lymphadenopathy. CARDIOVASCULAR: Regular rate and rhythm without murmurs, gallops, or rubs. RESPIRATORY: Breath sounds equal bilaterally. No accessory muscle use. GASTROINTESTINAL: Abdomen soft, non-tender, nondistended. MUSCULOSKELETAL: No cyanosis, or edema. BACK: Nontender without obvious deformity. No CVA tenderness. Vital Signs Vital Signs Date Time Temp Pulse Resp B/P (MAP) Pulse Ox O2 Delivery O2 Flow Rate FiO2 10/17/17 06:03 98.3 99 17 170/102 (124) 96 Lab Results Test 10/17/17 12:09 Blood Urea Nitrogen 5 MG/DL Creatinine 0.80 MG/DL Random Glucose 163 MG/DL Calcium Level 9.1 MG/DL Sodium Level 129 MEQ/L Potassium Level 3.4 MEQ/L Chloride Level 92 MEQ/L Carbon Dioxide Level 28.4 MEQ/L Anion Gap 9 MEQ/L Estimat Glomerular Filtration Rate 74 ML/MIN Triglycerides Level 122 MG/DL Cholesterol Level 172 MG/DL LDL Cholesterol 59 MG/DL HDL Cholesterol 88.8 MG/DL Cholesterol/HDL Ratio 1.93 RATIO Mental Status Examination Appearance: Appropriate Consciousness: Alert Orientation: Person, Place Motor Activity: Abnormal gait Speech: Hesitant Language: Adequate Fund of Knowledge: Inadequate Attention and Concentration: Inadequate Memory: Impaired Mood: Anxious Affect: Anxious Thought Process & Associations: Loose associations, Circumstantial, Tangential Thought Content: Bizarre thinking Hallucination Type: None Delusion Type: None Suicidal Ideation: No Suicidal Plan: No Suicidal Intention: No Homicidal Ideation: No Homicidal Plan: No Homicidal Intention: No Insight: Fair Judgment: Impulsive Assessment & Plan Problem List: (1) Brief psychotic disorder ICD Codes: F23 - Brief psychotic disorder Assessment & Plan Estimated LOS: days. 57-year-old female admitted voluntarily with confused/ altered mental status. [place] she [place] lost and ended in [facility] instead of where she lives, and port [facility]. She provides inadequate explanations for her behavior and has reportedly stared into space on multiple occasions and not answered even simple questions. She demonstrated confused thinking with this physician and indicated her nephew was a k-9. Because the patient is psychotic and confused, she is unable to care for herself , engaging in dangerous behavior and being admitted for further evaluation and treatment. This physician has ordered a comprehensive metabolic panel and CBC to again check regarding any infectious process or metabolic process which might be causing or contributing to her confusion. She is also being started back on low dose Klonopin and Ambien as this physician is concerned she is going through withdrawal, giving rise to her confusion. This physician has also ordered a thyroid-stimulating hormone level, vitamin B-12 level and vitamin D level to determine if deficiencies in these areas are causing her contributing to her confusion. This physician is also ordering an EKG to determine her cardiac conduction status prior to starting other psychotropic medicines which might adversely affect her current her conduction case discussed with patient's nurse, Galina. Case management will also be involved to assist with further information gathering and disposition planning. Luiz Ndiaye MD Oct 17, 2017 14:14
[2017-10-17] MEDS ORDERED: ZOLPIDEM TARTRATE 5 MG TAB PO PRN (14:15)
[2017-10-17] MEDS: ACETAMINOPHEN/HYDROcodone 325 MG/5 MG TAB PO PRN (14:19)
[2017-10-17 18:00] VITALS: BP 156/86; PULSE 94; RESP 18; TEMP 98.1; O2SAT 95
[2017-10-17] MEDS ORDERED: REMOVE OLD NICOTINE PATCH T-DERMAL SCH (21:00)
[2017-10-17] MEDS: clonazePAM 0.5 MG TAB PO SCH (21:16)
[2017-10-18] MEDS: ACETAMINOPHEN/HYDROcodone 325 MG/5 MG TAB PO PRN ×3 (04:08→13:04)
[2017-10-18 06:14] VITALS: BP 149/79; PULSE 102; RESP 18; TEMP 97.6
[2017-10-18 08:05] LABS: AUTOMATED NEUTROPHIL # 3.8 TH/MM3 (1.8-7.7); BASOPHIL # 0.1 TH/MM3 (0-0.2); EOSINOPHIL # 0.2 TH/MM3 (0-0.4); HEMATOCRIT 42.9 % (35.0-46.0); HEMO FLAGS DIFF FINAL; LYMPH % 29.8 % (9.0-44.0); LYMPHOCYTE # 2.1 TH/MM3 (1.0-4.8); MEAN CELL VOLUME 98.5 FL (80.0-100.0); MEAN CORPUSCULAR HEMOGLOBIN 32.7 PG (27.0-34.0); MEAN CORPUSCULAR HGB CONC 33.1 % (32.0-36.0); MONO % 12.5 % (0.0-8.0); NEUT % 53.7 % (16.0-70.0); PLATELET COUNT 291 TH/MM3 (150-450); RED BLOOD COUNT 4.35 MIL/MM3 (4.00-5.30); WHITE BLOOD COUNT 7.1 TH/MM3 (4.0-11.0)
[2017-10-18] MEDS: POTASSIUM CHLORIDE 20 MEQ CONTROLLED RELEASE TAB PO SCH (08:23)
[2017-10-18] MEDS: cloNIDine HCL 0.1 MG TAB PO SCH (08:24)
[2017-10-18] MEDS: clonazePAM 0.5 MG TAB PO SCH (08:24)
[2017-10-18] MEDS: NICOTINE 21 MG/24 HR PATCH T-DERMAL SCH (08:27)
[2017-10-18 08:36] LABS: ANION GAP 8 MEQ/L (5-15); AST (GOT) 30 U/L (15-37); BICARBONATE 28.1 MEQ/L (21.0-32.0); BLOOD UREA NITROGEN 6 MG/DL (7-18); CHLORIDE 95 MEQ/L (98-107); GLOMERULAR FILTRATION RATE 84 ML/MIN (>89); POTASSIUM 3.5 MEQ/L (3.5-5.1); SODIUM (NA) 131 MEQ/L (136-145)
[2017-10-18 08:37] LABS: ALT (GPT) 26 U/L (10-53)
[2017-10-18] MEDS ORDERED: SODIUM CHLORIDE 1 GRAM TAB PO SCH (09:00)
[2017-10-18] MEDS ORDERED: PREGABALIN 25 MG CAP PO SCH (09:00)
[2017-10-18 09:03] LABS: ALKALINE PHOSPHATASE 47 U/L (45-117); HDL CHOLESTEROL 93.7 MG/DL (40.0-60.0); LDL CHOLESTEROL 53 MG/DL (0-99); TOTAL BILIRUBIN ADULT 0.3 MG/DL (0.2-1.0)
[2017-10-18 09:18] LABS: HEMOGLOBIN A1a 1.5 %; HEMOGLOBIN A1b 0.8 %; HEMOGLOBIN Ao 85.5 %; HEMOGLOBIN F 1.1 %; HEMOGLOBIN LA1C 1.9 %; HEMOGLOBIN P3 3.3 %
[2017-10-18 09:53] LABS: HEMOGLOBIN A1a 1.2 %; HEMOGLOBIN A1b 0.8 %; HEMOGLOBIN Ao 84.8 %; HEMOGLOBIN F 1.1 %; HEMOGLOBIN LA1C 2.5 %; HEMOGLOBIN P3 3.4 %
--- NOTE | 2017-10-18 12:00 | HHI.DS ---
Psychiatry Discharge Summary Inpatient Psychiatric care?: Yes Advance Directive: No Reason Not Provided: Refused Mental Health AdvanceDirective: No Health Care Proxy: No Admission Admission Date Oct 16, 2017 at 17:30 Admission Diagnosis: (1) Brief psychotic disorder ICD Code: F23 - Brief psychotic disorder Brief History 57-year-old female admitted voluntarily after transfer from Dr. Van in [facility]. Apparently, the patient was admitted to [facility] with altered mental status. She would not necessarily answer questions and stare blankly at the staff, including when she was asked her name. While treated at [facility], the patient's electrolytes and fluids were corrected, although they were not greatly abnormal. Patient was apparently brought there by [facility] as her car broke down in the [facility] area. She was noted to be dirty and disheveled by [facility] but [facility] reportedly spoke with a friend of hers, who said the patient had not been acting strangely the week before. The patient tells this physician she lives in [facility] and has been living there with a friend for several months. She receives Social Security disability but is not certain why. She states she was driving to [facility] but ended up in [facility]. When questioned about this travel experience, the patient does not have an adequate explanation about why she did not stop or ask for directions, etc. Her speech continues to be somewhat disjointed with flight of ideas and loose associations. For example, she reports one of her nephews is a K-9. (I believe she means he is graduating from some law enforcement Academy.) She has a sister in [place] whom she gave permission to call and a sister in [facility] whom she initially gave permission to call and then changed. She stated the sister in [place] is taking care of the boyfriend's mother who is terminally ill and this sister is too busy to call. She then stated the sister in [facility] has a house full of "optometric coordinator" and she is too busy. The patient then provided permission to talk to the sister in [place]. Lastly, patient is repeatedly asking for her medications of Klonopin and Ambien and states she has not slept in 7 days. Tobacco Use In Past 30 Days: 5 or More Cigarettes/Day Alcohol Use: Monthly or Less Hospital Course Patient seen in her room with nurse Tobias, patient states that she ran out of her sleeping medicine in [place] did not sleep her almost a week get in her car became quite confused and won't up in the [place] area where she was seen in the [facility] facility. She is treated for mild metabolic irregularities. She does show confusion perhaps some mild delirium at that time and was transferred to [place] voluntary basis patient is seen screened and are J pod and then admitted by Dr. Luiz Ndiaye for further observation and assessment. She was also seen by her hospitalist. Today patient states she feels much better she's had a few good nights sleep. She is alert and oriented 4. She denies suicidality homicidality voices or visions. States she does have a roommate and friends in the [place] area. Though that area does see a female psychiatrist in that area who prescribes multiple psychotropics including various benzodiazepines is also being prescribed opiates for pain. At this time patient does not meet criteria for further inpatient psychiatric hospitalization. Patient wishes to be discharged she does have money available locally in her pain. She needs to contact the police to find location of her vehicle she wishes to return to [place]. Thus patient will be discharged today we will help get her to her bank. The been no Rx by me. She should follow through with her clinician in the [place] area Results Blood Pressure 149 / 79 Vital Signs Date Time Temp Pulse Resp B/P (MAP) Pulse Ox O2 Delivery O2 Flow Rate FiO2 10/18/17 06:14 97.6 102 18 149/79 (102) 10/17/17 18:00 95 Laboratory Tests Test 10/17/17 12:09 10/18/17 07:15 Blood Urea Nitrogen 5 MG/DL (7-18) 6 MG/DL (7-18) Random Glucose 163 MG/DL (74-106) Sodium Level 129 MEQ/L (136-145) 131 MEQ/L (136-145) Potassium Level 3.4 MEQ/L (3.5-5.1) Chloride Level 92 MEQ/L (98-107) 95 MEQ/L (98-107) Estimat Glomerular Filtration Rate 74 ML/MIN (>89) 84 ML/MIN (>89) HDL Cholesterol 88.8 MG/DL (40.0-60.0) 93.7 MG/DL (40.0-60.0) Monocytes (%) (Auto) 12.5 % (0.0-8.0) 25-Hydroxy Vitamin D Total 12.5 ng/ML (30-100) Laboratory Results Test 10/18/17 07:15 Cholesterol Level 162 MG/DL (120-200) HDL Cholesterol 93.7 MG/DL (40.0-60.0) Hemoglobin A1c 5.5 % (4.3-6.0) LDL Cholesterol 53 MG/DL (0-99) Triglycerides Level 75 MG/DL (42-150) Summary of Procedures None done Pending results at discharge: No Medications # of Antipsychotic meds at D/C: 0 Approp Antipsych med options 1 - Minimum of three failed multiple trials of monotherapy. 2 - Documented plan to taper to monotherapy due to previous use of multiple meds OR cross-taper in progress at D/C. 3 - Documentation of augmentation of Clozapine. 4 - Justification other than those listed in allowable values 1-3, document here : Discharge Discharge Date: Oct 18, 2017 Discharge Diagnosis: (1) Brief psychotic disorder Diagnosis: Principal ICD Code: F23 - Brief psychotic disorder Pt Condition on Discharge: Stable Discharge Disposition: Discharge Home Discharge Instructions Diet Instructions: As Tolerated, No Restrictions Activities you can perform: Regular-No Restrictions Scheduled Appointment: follow-up psychiatrist and primary care physicians in the [place] area Discharge Time > 30 minutes Mental Status Examination Appearance: Appropriate Consciousness: Alert Orientation: Person, Place Motor Activity: Abnormal gait Speech: Hesitant Language: Adequate Fund of Knowledge: Inadequate Attention and Concentration: Inadequate Memory: Impaired Mood: Anxious Affect: Anxious Thought Process & Associations: Loose associations, Circumstantial, Tangential Thought Content: Bizarre thinking Hallucination Type: None Delusion Type: None Suicidal Ideation: No Suicidal Plan: No Suicidal Intention: No Homicidal Ideation: No Homicidal Plan: No Homicidal Intention: No Insight: Fair Judgment: Impulsive Discharge/Advance Care Plan Health Problems: (1) Brief psychotic disorder Goals to promote your health * To prevent worsening of your condition and complications * To maintain your health at the optimal level Directions to meet your goals Take your medications as prescribed Follow your dietary instruction Follow activity as directed Keep your appointments as scheduled Take your immunizations and boosters as scheduled If your symptoms worsen call your PCP, if no PCP go to Urgent Care Center or Emergency Room For 07/06 questions related to your inpatient stay or results of tests pending at discharge, please contact Dr. Juancho Warner at Smoking is Dangerous to Your Health. Avoid second hand smoking Juancho Warner MD Oct 18, 2017 12:00
== END 2017-10-18 13:36 | disposition home or self-care (01) | DRG 885 ==
LOC: H260 17:30
PROVIDERS: ADMIT Psychiatry & Neurology Psychiatry; ATTEND Psychiatry & Neurology Psychiatry
DX: F23 Brief psychotic disorder (principal); E87.1 Hypo-osmolality and hyponatremia; I10 Essential (primary) hypertension; J44.9 Chronic obstructive pulmonary disease, unspecified; M25.561 Pain in right knee; M25.562 Pain in left knee; G89.29 Other chronic pain; E87.6 Hypokalemia; Z81.8 Family history of other mental and behavioral disorders
CPT/HCPCS: 80048; 80053; 80061; 82306; 82607; 83036; 84132; 84443; 85025